=== PATIENT | female | born 1990 | race African-American/Black ===

== ENCOUNTER → 2016-07-02 11:25 | Outpatient (CLI) | payer MEDICAID ==
[~2016-07-02 11:25] MED LIST: CLEOCIN HCL300 MG PO; IBUPROFEN600 MG PO; PERCOCET 5-3251 TAB PO
[2016-08-20 12:25] VITALS: BMI 24.7
== END | disposition home or self-care (01) ==
LOC: D.LDO 11:25
DX: O36.5930 Maternal care for other known or suspected poor fetal growth, third trimester, not applicable or unspecified (principal); Z3A.31 31 weeks gestation of pregnancy

== ENCOUNTER 2016-08-20 11:49 | Inpatient (IN) | payer MEDICAID ==
[~2016-08-20] VITALS: Ht 162.6 cm; Wt 65.5 kg
[2016-08-20 12:25] VITALS: BP 118/58; Ht 162.6 cm; Wt 65.5 kg
[2016-08-20 12:26] LABS: HEMATOCRIT 39.8 % (36.0-48.0); HEMOGLOBIN 13.1 g/dL (12-16); MCH 29.4 pg (26.0-34.0); MCHC 32.9 g/dL (31.0-37.0); MCV 89.2 fL (80.0-100.0); RBC 4.46 10x6/uL (4.00-5.40); RDW 14.5 % (11.5-14.5); WBC 14.5 10x3/uL (4.8-10.8)
[2016-08-20 12:42] LABS: APPEARANCE CLOUDY (CLEAR); BILIRUBIN NEGATIVE (NEGATIVE); COLOR STRAW (YELLOW); GLUCOSE NEGATIVE (NEGATIVE); KETONE NEGATIVE (NEGATIVE); LEUKOCYTE ESTERASE 1+ (NEGATIVE); NITRITE NEGATIVE (NEGATIVE); PROTEIN 1+ mg/dL (NEGATIVE); UROBILINOGEN NORMAL (NORMAL)
[2016-08-20 12:45] LABS: BACTERIA MODERATE /hpf (NONE SEEN)
[2016-08-20 22:27] VITALS: BP 113/72
--- NOTE | 2016-08-20 22:27 | NUR ---
PT RECEIVED FROM RECOVERY ROOM NURSE TO ROOM 1218 AT THIS TIME. ORIENTED PT TO ROOM AND CALL LIGHT. PT VERBALIZED UNDERSTANDING. BP-113/72 P-126 TEMP-98.5 ORAL RESPIRATIONS 18, EVEN, NON-LABORED. O2 -99% ROOM AIR. IV NOTED TO LEFT WRIST INFUSING NS WITH 20 UNITS OF PIT @ 125 CC/HR. PATENT. DRESSING CDI HEART - SINUS TACHYCARDIA, RHYTHM REGULAR. LUNG SOUNDS CLEAR BILATERALLY. BOWEL SOUNDS ACTIVE X4 QUADRENTS. ABDOMEN SOFT WITH TENDERNESS. FUNDUS FIRM AND MIDLINE U/U. LIGHT LOCHIA RUBRA NOTED TO BLUE PAD. PLACED CLEAN STORM PAD ON PT AT THIS TIME. SCDS INITIATED TO BLE AT THIS TIME. MARTIN CATHETER ATTACHED TO RIGHT THIGH. DRAINING. EMPTIED 400 CC KAREEM URINE AT THIS TIME. INSTRUCTED PT ON HOW TO USE IS AT THIS TIME. PT VERBALIZED UNDERSTANDING AND DEMONSTRATED USE BACK TO ME. PT WAS ABLE TO PULL 1500 AT THIS TIME. DEMEROL SWITCHBOARD OPERATOR SUPERVISOR INITIATED AT THIS TIME. INSTRUCTED PT ON HOW TO USE SWITCHBOARD OPERATOR SUPERVISOR. PT VERBALIZED UNDERSTANDING. REQUESTS ICE WATER AT THIS TIME. DENIES OTHER NEEDS. BED LOW. PHONE AND CALL LIGHT IN REACH. SRX2.
[2016-08-20 22:42] VITALS: BP 125/65
[2016-08-20 22:57] VITALS: BP 125/72
[2016-08-20 23:12] VITALS: BP 122/69
[2016-08-20 23:42] VITALS: BP 117/65
--- NOTE | 2016-08-20 23:50 | NUR ---
PT RESTING QUIETLY AT THIS TIME WITH EYES CLOSED. RATES PAIN 5/10 AT THIS TIME. LIGHT LOCHIA RUBRA NOTED TO STORM PAD AND TOWEL UNDER PT AT THIS TIME. PLACED NEW STORM PAD AND REMOVED TOWEL AT THIS TIME. EMPTIED 600 CC FROM MARTIN AT THIS TIME. PT DENIES NEEDS AT THIS TIME. BED LOW. PHONE AND CALL LIGHT IN REACH. SRX2.
[2016-08-21] VITALS (7 sets, daily range): BP systolic 114–125; BP diastolic 52–78
--- NOTE | 2016-08-21 00:13 | NUR ---
PT C/O PAIN 01/22 AT THIS TIME. ADMINISTERED TORADOL IVP PER ORDERS AT THIS TIME FOR BREAKTHROUGH PAIN. PT DENIES FURTHER NEEDS AT THIS TIME. WILL CONTINUE TO MONITOR.
--- NOTE | 2016-08-21 00:43 | NUR ---
PT RESTING QUIETLY AT THIS TIME WITH EYES CLOSED. RESPIRATIONS EVEN, NON-LABOARED. NO ACUTE DISTRESS NOTED AT THIS TIME. PULSE-126. WILL CONTINUE TOO MONITOR.
--- NOTE | 2016-08-21 01:29 | NUR ---
PT RESTING QUIETLY AT THIS TIME WITH EYES CLOSED. RESPIRATIONS EVEN, NON-LABORED. NO ACUTE DISTRESS NOTED AT THIS TIME. PULSE-110. BED LOW. PHONE AND CALL LIGHT IN REACH. SRX2.
--- NOTE | 2016-08-21 02:06 | NUR ---
PT RESTING QUIETLY AT THIS TIME WITH EYES CLOSED. RESPIRATIONS EVEN, NON-LABORED. NO ACUTE DISTRESS NOTED AT THIS TIME. BED LOW. PHONE AND CALL LIGHT IN REACH. SRX2.
--- NOTE | 2016-08-21 03:05 | NUR ---
PT RESTING QUIETLY AT THIS TIME. AROUSED EASILY. DENIES NEEDS AT THIS TIME. BED LOW. PHONE AND CALL LIGHT IN REACH. SRX2.
--- NOTE | 2016-08-21 03:50 | NUR ---
PT RESTING QUIETLY AT THIS TIME. AROUSED EASILY. EMPTIED 900 CC FROM MARTIN AT THIS TIME. MODERATE LOCHIA RUBRA NOTED TO STORM PAD AND LIGHT LOCHIA RUBRA NOTED TO BLUE PAD AT THIS TIME. PLACED CLEAN BLUE PAD AND STORM PAD UNDER PT AT THIS TIME. PT REQUESTS APPLE JUICE AT THIS TIME. DENIES OTHER NEEDS. BED LOW. PHONE AND CALL LIGHT IN REACH. SRX2.
--- NOTE | 2016-08-21 05:38 | NUR ---
PT RESTING QUIETLY WITH EYES CLOSED AT THIS TIME. AROUSED EASILY. MODERATE LOCHIA RUBRA NOTED TO STORM PAD AT THIS TIME. PLACED NEW STORM PAD ON PT. PT DENIES NEEDS. BED LOW. PHONE AND CALL LIGHT IN REACH. SRX2.
[2016-08-21 06:16] LABS: RAPID PLASMA REAGIN Non Reactive (Non Reactive)
[2016-08-21 06:36] LABS: BASOPHILS 0.2 % (0.0-2.0); EOSINOPHILS 0.3 % (0-7); HEMATOCRIT 35.3 % (36.0-48.0); HEMOGLOBIN 11.6 g/dL (12-16); IMMATURE GRANULOCYTES 0.5 % (0-5); LYMPHOCYTES 7.4 % (15-50); MCH 28.9 pg (26.0-34.0); MCHC 32.9 g/dL (31.0-37.0); MEAN PLATELET VOLUME 12.2 fL (7.4-10.4); MONOCYTES 7.5 % (2-11); NEUTROPHILS 84.1 % (40-80); PLATELET COUNT 185 10x3/uL (130-400); RBC 4.01 10x6/uL (4.00-5.40); RDW 14.7 % (11.5-14.5)
--- NOTE | 2016-08-21 06:36 | NUR ---
PT BURNER HAND LIGHT. REQUESTS TO MOVE UP IN THE BED AT THIS TIME. LIGHT LOCHIA RUBRA NOTED TO STORM PAD AT THIS TIME. PLACED CLEAN STORM PAD ON PT. PT REQUESTS ICE WATER AND JELLO AT THIS TIME. DENIES FURTHER NEEDS. BED LOW. PHONE AND CALL LIGHT IN REACH. SRX2.
[2016-08-21 06:39] LABS: WBC 19.6 10x3/uL (4.8-10.8)
--- NOTE | 2016-08-21 07:58 | NUR ---
PT HAD A C SECTION LAST PM AND IS NOW ON BEDREST. WILL DO PCXR.
--- NOTE | 2016-08-21 08:14 | NUR ---
PATIENT DID NOT ALLOW PALPATION OF ABDOMEN DUE TO GUARDING FOR PAIN. ENCOURAGED USE OF INVESTIGATOR INTERNAL REVENUE. WILL MEDICATE ABLE TO COMFORT/ALLOW ABDOMINAL PALPATION. MEDICAL IMAGING HER FOR CXR. FOB TOOK TO NURSERY. PATIENT STATEST HAT SHE IS FEELING TIRED. TACHYCARDIA NOTED. BLEEDING LIGHT. PERIPAD CHANGED.
--- NOTE | 2016-08-21 09:25 | NUR ---
PATIENT'S FF U/1. SHE GUARDED PALPATION BUT DID ALLOW. HER BLEEDING REMAINS LIGHT, PERIPAD CHANGED. URINE OUTPUT IS ABOVE ADEQUATE. SCD'S ARE ON AND PUMPING. FOB BRINGING INFANT IN I LEFT, ACCOMPANIED BY VISITORS.
--- NOTE | 2016-08-21 10:30 | NUR ---
PATIENT HOLDING BABY I ENTER, SHE REQUESTS THAT I PLACE HIM IN BASSINET. PATIENT RATES HER PAIN A 3. HER BLEEDING IS LIGHT, PERIPAD CHANGED. URINARY OUTPUT REMAINS GOOD. PATIENT STATES THAT SHE WANTS TO NAP AND REQUESTS THAT I MOVE THE CLOSE TO THE BEDSIDE WHERE SHE CAN SEE HIM. HE IS SLEEPING. SCD'S REMAIN ON.
--- NOTE | 2016-08-21 12:40 | NUR ---
PATIENT ABLE TO EAT SOME OF HER MEAL. DENIES NAUSEA. FOB ASLEEP AT THE BEDSIDE, PATIENT DENIES NEEDS, STATES THAT SHE IS SLEEPY AND WANTS TO REST.
--- NOTE | 2016-08-21 14:40 | NUR ---
MARTIN CATHETER REMOVED AFTER BALLOON DEFLATED, FULLY INTACT. SL THE IV TO HER LEFT HAND. SHE C/O SORE THROAT. HOT TEA PROVIDED PER REQUEST. ORAL PAIN MEDICATIONS GIVEN WITH INSTRUCTIONS TO CALL FOR ASSISTANCE GETTING UP OOB.
--- NOTE | 2016-08-21 16:32 | NUR ---
CONTINUED TACHYCARDIA NOTED. REPORT CALLED TO DR. QUICK, NEW ORDERS RECEIVED. CONSULT CALLED TO [facility]. SPOKE WITH JUDIE, INFO GIVEN. IT IS UNCLEAR WHICH PHYSICIAN WILL BE IN. PATIENT NOTIFIED. SHE VOICES UNDERSTANDING.
--- NOTE | 2016-08-21 17:35 | NUR ---
PATIENT BACK TO BED AFTER SITTING UP IN THE BEDSIDE CHAIR. SHE IS ABLE TO GET BACK TO BED WITH VERBAL CUEING AND STANDBY ASSIST. FOB RETURNING, SUPPER TRAY SET UP IN FRONT OF HER FOR EASY ACCESS. SHE DENIES FURTHER NEEDS AT THIS TIME.
[2016-08-21 18:19] LABS: HEMATOCRIT 32.6 % (36.0-48.0); HEMOGLOBIN 10.7 g/dL (12-16); MCH 28.9 pg (26.0-34.0); MCHC 32.8 g/dL (31.0-37.0); MCV 88.1 fL (80.0-100.0); MEAN PLATELET VOLUME 11.2 fL (7.4-10.4); PLATELET COUNT 155 10x3/uL (130-400); RDW 14.8 % (11.5-14.5); WBC 23.4 10x3/uL (4.8-10.8)
[2016-08-21 18:42] LABS: EOSINOPHILS 1 % (0-7); LYMPHOCYTES 8 % (15-50); MONOCYTES 4 % (2-11); NEUTROPHILS 79 % (40-80); PLATELET ESTIMATE DECREASED
--- NOTE | 2016-08-21 19:35 | NUR ---
PT GRANITE BLOCK PAVER LIGHT. STATES SHE NEEDS TO USE RESTROOM AT THIS TIME. ASSISTED PT TO RESTROOM. PT VOIDED APPROX 400 CC KAREEM URINE AT THIS TIME. INFANT TO ROOM AT THIS TIME FOR BOTTLE FEEDING. INFORMED PT I WOULD RETURN TO PERFORM ASSESSMENT. PT DENIES NEEDS. BED LOW. PHONE AND CALL LIGHT IN REACH. SRX2.
--- NOTE | 2016-08-21 20:24 | NUR ---
PT FINISHED BOTTLE FEEDING INFANT AT THIS TIME. PLACED IN BASSINET. PT STATES SHE WANTS TO WAIT FOR FOB TO RETURN BEFORE TAKING SHOWER. BP-122/64 PULSE-110 O2 SAT-99% ROOM AIR. RESPIRATIONS 18 EVEN, NON-LABORED. PT RATES PAIN 3/10 AT THIS TIME. SALINE LOCK NOTED TO LEFT WRIST. DRESSING CDI. HEART SINUS TACHYCARDIA. LUNG SOUNDS CLEAR BILATERALLY. BOWEL SOUNDS ACTIVE X4 QUADRENTS. ABDOMEN SOFT WITH TENDERNESS. LOW TRANSVERSE INCISION NOTED TO ABDOMEN WITH BULKY DRESSING. DRESSING CDI. FUNDUS FIRM AND MIDLINE U/1. SCANT LOCHIA RUBRA NOTED TO STORM PAD AT THIS TIME. PT STATES LOCHIA HAS BEEN LIGHT THROUGHOUT THE DAY. SCDS NOTED TO BLE. PT DENIES NEEDS AT THIS TIME. BED LOW. PHONE AND CALL LIGHT IN REACH. SRX2.
--- NOTE | 2016-08-21 21:40 | NUR ---
PT UP GETTING INTO SHOWER AT THIS TIME. SCANT LOCHIA RUBRA NOTED TO STORM PAD. REMOVED BULKY DRESSING. EDGES WELL APPROXIMATED. SMALL SKIN TEAR NOTED TO RIGHT SIDE OF INCISION. NO REDNESS, SWELLING, OR PURULENT DRAINAGE NOTED TO INCISION AREA. BED LINENS CHANGED PER EVA PEARSON AT THIS TIME.
--- NOTE | 2016-08-21 21:50 | NUR ---
PT VOIDED APPROX 700 CC KAREEM URINE AT THIS TIME.
--- NOTE | 2016-08-21 22:19 | NUR ---
PT REQUESTS MEDICATION FOR PAIN 12/22 AT THIS TIME. ADMINISTERED IBUPROFEN PO PER ORDERS. FOB AND INFANT AT BEDSIDE. DENIES FURTHER NEEDS. BED LOW. PHONE AND CALL LIGHT IN REACH. SRX2.
[2016-08-22 00:01] VITALS: BP 113/66
--- NOTE | 2016-08-22 00:02 | NUR ---
PT RESTING QUIETLY AT THIS TIME WITH INFANT IN ARMS. VITAL SIGNS TAKEN. BP-113/66 PULSE-120 O2 SAT-98% ROOM AIR. RESPIRATIONS 18 EVEN, NON-LABORED. PT DENIES NEEDS AT THIS TIME. BED LOW. PHONE AND CALL LIGHT IN REACH. SRX2.
--- NOTE | 2016-08-22 02:02 | NUR ---
PT RESTING QUIETLY AT THIS TIME WITH INFANT ON CHEST. DENIES NEEDS. BED LOW. PHONE AND CALL LIGHT IN REACH. SRX2.
[2016-08-22 04:17] VITALS: BP 131/70
--- NOTE | 2016-08-22 04:17 | NUR ---
PT GETTING BACK IN BED FROM USING RESTROOM AT THIS TIME. VITAL SIGNS TAKEN. BP-131/70 PULSE-128 O2 SAT-98% ROOM AIR. RESPIRATIONS 18 EVEN, NON-LABORED. PT DENIES NEEDS AT THIS TIME. BED LOW. PHONE AND CALL LIGHT IN REACH. SRX2.
--- NOTE | 2016-08-22 06:42 | NUR ---
PT RESTING QUIETLY AT THIS TIME WATCHING TV. DENIES NEEDS. BED LOW. PHONE AND CALL LIGHT IN REACH. SRX2.
--- NOTE | 2016-08-22 07:50 | NUR ---
PATIENT IS OUT AMBULATING IN THE HALLWAY WITH FOB. SHE IS SMILING AND STATES THAT SHE HAD A GOOD NIGHT.
[2016-08-22 08:10] VITALS: BP 141/74
[2016-08-22 11:31] LABS: BASOPHILS 0.1 % (0.0-2.0); EOSINOPHILS 0.9 % (0-7); HEMATOCRIT 31.6 % (36.0-48.0); HEMOGLOBIN 10.4 g/dL (12-16); IMMATURE GRANULOCYTES 0.8 % (0-5); LYMPHOCYTES 6.2 % (15-50); MCH 29.1 pg (26.0-34.0); MCHC 32.9 g/dL (31.0-37.0); MCV 88.5 fL (80.0-100.0); MEAN PLATELET VOLUME 11.8 fL (7.4-10.4); MONOCYTES 6.7 % (2-11); NEUTROPHILS 85.3 % (40-80); PLATELET COUNT 175 10x3/uL (130-400); RBC 3.57 10x6/uL (4.00-5.40); RDW 14.9 % (11.5-14.5); WBC 26.1 10x3/uL (4.8-10.8)
--- NOTE | 2016-08-22 11:40 | NUR ---
PATIENT IS C/O RIGHT SIDED ABDOMINAL PAIN. SHE STATE SHTAT IT CAME ON QUITE SUDDENLY. HER ABDOMEN IS DISTENDED. BOWEL SOUNDS ARE ACTIVE. SHE HASN'T PASSED GAS YET PER STATEMENT. SHE STATES THAT SHE FEELS IT MOVING AROUND IN HER ABDOMEN. SHE IS SITTING UP IN [facility] BEDSIDE CHAIR.
--- NOTE | 2016-08-22 14:20 | NUR ---
PATIENT STATES THAT HER PAIN REMAINS A 7. DISCUSSED A DULCOLAX SUPPOSITORY. SHE DECLINES. INITIATED HER ABT. IT WAS BURNING AT THE INSERTION SITE, BEGAN LEAKING ALMOST IMMEDIATELY. RESITED TO THE RIGHT UPPER FOREARM, 22 GAUGE, GOOD BLOOD RETURN. PATIENT GIVEN HER AND ENCOURAGED TO INTERACT WITH SKIN TO SKIN OR SINGING. SHE WAS CALLING HIM LITTLE MAN, LOVINGLY I LEFT.
--- NOTE | 2016-08-22 16:10 | NUR ---
PATIENT STATES THAT SHE HAS BELCHED TWICE REAL BIG AND THIS HAS GIVEN HER SOME RELIEF.
--- NOTE | 2016-08-22 17:22 | NUR ---
URINE SAMPLE COLLECTED AND DELIVERED TO THE LAB.
[2016-08-22 17:58] LABS: APPEARANCE CLEAR (CLEAR); BILIRUBIN NEGATIVE (NEGATIVE); COLOR YELLOW (YELLOW); GLUCOSE NEGATIVE (NEGATIVE); KETONE NEGATIVE (NEGATIVE); LEUKOCYTE ESTERASE NEGATIVE (NEGATIVE); NITRITE NEGATIVE (NEGATIVE); PROTEIN NEGATIVE (NEGATIVE); UROBILINOGEN NORMAL (NORMAL)
[2016-08-22 18:00] LABS: BACTERIA FEW /hpf (NONE SEEN); EPITHELIAL CELLS 0-5 /hpf (0-5)
--- NOTE | 2016-08-22 19:13 | OP ---
PATIENT NAME: LA DEL VALLE V MEDICAL RECORD: [id number] :91 LOCATION:[facility] D.1218 ADMISSION DATE:08/20/16 SURGEON: RYAN STEELE MD DATE OF OPERATION: 08/20/2016 DATE OF OPERATION: 08/20/2016 PREOPERATIVE DIAGNOSES: 1. Intrauterine at 38 weeks and 3 days. 2. Secondary failure of descent. POSTOPERATIVE DIAGNOSES: 1. Intrauterine at 38 weeks and 3 days. 2. Secondary failure of descent. 3. asynclitism/occiput posterior presentation. 4. Delivered. SURGEON: Ryan Steele MD. ANESTHESIA: Epidural anesthesia with [place] CRNA. PROCEDURE: Primary low-transverse . PREOPERATIVE NOTE: The patient is a 26-year-old , -[place] female at 38 weeks and 3 days, who presented to labor and delivery with report of spontaneous rupture of membranes at 11:20 this a.m. with continued loss of fluid since, gross rupture was confirmed and the patient was admitted. The patient was not noted to be in labor and after approximately 3-4 hours of observation, was not noted to go into labor spontaneously; therefore, Pitocin augmentation for her labor was begun. The patient was noted to be 2 cm dilated at time of admission. The patient subsequently received an epidural for pain management and continued to progress normally through labor. Once the patient reached complete cervical dilation, expulsive efforts were begun and in spite of very good expulsive efforts on the maternal part, the fetus vertex was unable to descend. The patient was noted to have a very narrow pubic arch, a prominent tailbone and all expulsive efforts accomplished were development of caput succedaneum as well as further molding of the vertex. Palpably, the vertex was felt to be OP presentation and was possibly asynclitic. After more than an hour of good maternal expulsive efforts as well as cessation of the epidural to aid in this and discussion with the family, decision was made to proceed with a for delivery. heart rate tracing was noted to have variable decelerations with pushing, which returned spontaneously to baseline during rest periods and once Pitocin was discontinued, heart rate tracing became category 1 and was reassuring while awaiting preparations for . FINDINGS: Delivery of viable male from asynclitic vertex/occiput posterior presentation via primary low-transverse under epidural anesthesia at 2130 p.m. with weight of 5 pounds 14 ounces and scores of 8 and 9 at 1 and 5 minutes respectively. No nuchal cord was noted. The cord was clamped and cut. The was bulb suctioned and handed to awaiting pediatric nursing personnel. The placenta was delivered manually intact with 3-vessel cord at 2131 p.m. Pitocin 20 units and 1 liter of normal saline was begun IV. The fundus was noted to be firm. Normal-appearing uterus, ovaries and tubes bilaterally. The patient went to the recovery room in stable condition, the OPERATIVE REPORT [id number] LA DEL VALLE V to the nursery. DESCRIPTION OF PROCEDURE: After informed consent was given, the patient was taken to the operating room where epidural anesthesia was already in place, was bolused and found to be adequate. She was placed in a dorsal supine position with a leftward tilt. A Fernandes catheter was already in place with blood-tinged urine return. The patient was prepped and draped sterilely and when adequate anesthesia was noted, a Pfannenstiel skin incision was made through her skin and carried down to the underlying layer of fascia. The fascia was incised in midline and fascial incision extended bilaterally with the Resendez scissors. The superior portion of the fascial incision was grasped with 2 Socorro clamps and the rectus muscles dissected off sharply and bluntly. Attention was then turned to the inferior portion of the fascial incision, which was again grasped with 2 Socorro clamps and the rectus muscles dissected off sharply and bluntly. The rectus muscles were in the midline, the peritoneum identified and entered bluntly with a finger. This incision was extended superiorly and inferiorly with good visualization of the bladder. The Ford O retractor was then gently placed into the abdomen and opened in the usual fashion. The vesicouterine peritoneum was grasped with the smooth pickups and entered sharply with Metzenbaum scissors. This incision was extended bilaterally and a bladder flap created digitally. The hysterotomy was created with the knife and this was extended bilaterally bluntly. The fetus was then palpated and noted to be impacted in the pelvis in OP presentation. Anesthesia was instructed to give 50 mcg of nitroglycerin and this was given. Almost immediately, the uterus was relaxed and the head was able to be delivered atraumatically. No nuchal cord was noted. The cord was clamped times 2 and cut. The was bulb suctioned and handed to awaiting pediatric nursing personnel. The placenta was delivered manually and passed off the field as specimen. Cord blood was obtained. The uterus was left in situ with the hysterotomy apices clamped with ring forceps. The hysterotomy was then closed with #1 chromic in a running locked fashion with 2 imbricating sutures required for excellent hemostasis to be noted. Excellent hemostasis was then noted and the abdomen was irrigated profusely and was noted to be hemostatic. Paul dust was placed over the hysterotomy to aid additionally in hemostasis. The Ford O retractor was then removed and passed off the field. The rectus muscles were reapproximated in the midline with 4 interrupted chromic sutures. The fascia was closed with 0 Vicryl in a running fashion and the subcutaneous tissue was then irrigated. Any bleeders cauterized with the Bovie and when noted to be sufficiently dry was closed with 3-0 Vicryl in a running fashion and the skin was closed with 3-0 Monocryl in a subcuticular fashion. Dermabond and pressure dressing were applied. The patient tolerated procedure well. Sponge, lap, needle and instrument counts reported correct times 2 and the patient went to the recovery room in stable condition and the to the nursery. ESTIMATED BLOOD LOSS: 800 cc. URINE OUTPUT: 100 cc. SPECIMENS: Placenta and cord blood. COMPLICATIONS: None. TRANSINT:[id number] Voice Confirmation ID: [id number] DOCUMENT ID: [id number] OPERATIVE REPORT [id number] LA DEL VALLE RENEE MD at 1913 CC: [id number] DICTATION DATE: 08/20/16 2248 STUDIO ASSISTANT: 08/21/16 0259 ADM IN [place] [address] [place] [address]
--- NOTE | 2016-08-22 19:19 | NUR ---
CATHLEEN STATES THAT SHE IS STILL NOT PASSING GAS. DISCUSSED AGAIN THE DULCOLAX SUPP. SHE ALLOWED. INSTRUCTED HER TO LAY ON HER LEFT SIDE FOR AT LEAST 15 MINUTES OR SHE BECAME UNABLE TO HOLD HER BOWEL ANY LONGER. SHE VOICED UNDERSTANDING. FOB AT THE BEDSIDE CHANGING A DIAPER. THEY DENY OTHER NEEDS AT THIS TIME.
--- NOTE | 2016-08-22 19:20 | NUR ---
PATIENT STATES THAT SHE IS STILL NOT PASSING GAS. DISCUSSED AGAIN THE DULCOLAX SUPPOSITORYT. SHE ALLOWED IT TO BE GIVEN. INSTRUCTED HER TO LAY ON HER LEFT SIDE FOR 15 MINUTED OR UNTIL SHE IS UNABLE TO HOLD HER BOWEL ANY LONGER. SHE VOICED UNDERSTANDING. FOB AT THE BEDISDE CHANGING INFANTS DIAPER. THEY DENY OTHER NEEDS AT THIS TIME.
[2016-08-22 19:45] VITALS: BP 131/78
--- NOTE | 2016-08-22 19:45 | NUR ---
PT RECEIVED AMBULATING IN ROOM AT THIS TIME. FOB AND IN ROOM. VITAL SIGNS TAKEN. BP-131/78 PULSE-127 O2 SAT-100% ROOM AIR. TEMP-98.3 ORALLY. RESPIRATIONS 18 EVEN, NON-LABORED. HEART-SINUS TACHYCARDIA. LUNG SOUNDS CLEAR BILATERALLY. S/L NOTED TO LEFT UPPER ARM. DRESSING CDI. BOWEL SOUNDS ACTIVE X4 QUADRENTS. ABDOMEN DISTENDED, NON-TENDER. FUNDUS FIRM AND MIDLINE U/2. LOW TRANSVERSE INCISION NOTED TO ABDOMEN WITH DERMABOND. NO REDNESS, SWELLING, OR DRAINAGE NOTED TO INCISION AREA. SMALL SKIN TEAR NOTED TO RIGHT SIDE OF INCISION. PEDAL PULSES EQUAL BILATERALLY. 1+ PITTING EDEMA NOTED TO BLE. PT RATES PAIN 2/10 AT THIS TIME. DENIES NEEDS. BED LOW. PHONE AND CALL LIGHT IN REACH. SRX2.
--- NOTE | 2016-08-22 21:00 | NUR ---
PT PASSED SMALL BM AT THIS TIME. DENIES NEEDS. BED LOW. PHONE AND CALL LIGHT IN REACH. SRX2.
--- NOTE | 2016-08-22 22:33 | NUR ---
PT UP USING RESTROOM AT THIS TIME. NO NEEDS NOTED.
[2016-08-22 23:50] VITALS: BP 130/75
--- NOTE | 2016-08-22 23:50 | NUR ---
PT SITTING UP IN CHAIR HOLDING INFANT AT THIS TIME. VITAL SIGNS TAKEN. BP-130/75 PULSE-117 O2 SAT-100% ROOM AIR. RESPIRATIONS 18 EVEN, NON-LABORED. TEMP-98.9. PT DENIES NEEDS AT THIS TIME. BED LOW. PHONE AND CALL LIGHT IN REACH. SRX2.
--- NOTE | 2016-08-23 00:57 | NUR ---
AMPICILLIN IVPB STARTED AT THIS TO LEFT FOREARM. IV PATENT. INFUSING. DRESSING CDI. PT REQUESTS CRUSHED ICE AT THIS TIME. DENIES OTHER NEEDS. BED LOW. PHONE AND CALL LIGHT IN REACH. SRX2.
--- NOTE | 2016-08-23 02:18 | NUR ---
PT AWAKE WATCHING TV AT THIS TIME. FOB AND AT BEDSIDE. DENIES NEEDS. BED LOW. PHONE AND CALL LIGHT IN REACH. SRX2.
[2016-08-23 03:40] VITALS: BP 131/79
--- NOTE | 2016-08-23 03:40 | NUR ---
PT REQUESTS BREAST PADS AT THIS TIME. VITAL SIGNS TAKEN. TEMP-98 PULSE-106 O2 SAT-100% ROOM AIR. BP-131/79. PT DENIES OTHER NEEDS. BED LOW. PHONE AND CALL LIGHT IN REACH. SRX2.
--- NOTE | 2016-08-23 05:16 | NUR ---
PT RESTING QUIETLY AT THIS TIME WITH EYES CLOSED. RESPIRATIONS EVEN NON-LABORED. NO ACUTE DISTRESS NOTED AT THIS TIME. BED LOW. PHONE AND CALL LIGHT IN REACH. SRX2.
--- NOTE | 2016-08-23 07:30 | NUR ---
PT AMBULATES BACK TO ROOM FROM NURSERY WITH IN OPEN CRIB. LOW TRANSVERSE ABD INC C/D/I. PT STATES NO HEAVY BLEEDING. BS VERY ACTIVE, ABD FIRM. PT DENIES NEED FOR PAIN RX AT THIS TIME. VS NOTED. WILL CONTINUE TO MONITOR.
[2016-08-23 07:35] VITALS: BP 116/84
--- NOTE | 2016-08-23 08:28 | NUR ---
PT UP AND ABOUT IN ROOM.
--- NOTE | 2016-08-23 08:38 | NUR ---
CALLED TO ROOM. PT STATES SHE HAD BM AND PASSED A LOT OF GAS, FEELS MUCH BETTER.
--- NOTE | 2016-08-23 09:15 | NUR ---
PER WE[facility] [place] PT HAS HAS TDAP.
--- NOTE | 2016-08-23 10:13 | NUR ---
IN TO CHECK ON PT. SHE APPEARED TO BE SLEEPING AND HOLDING . PLACED IN OPEN CRIB. MOTHER AWAKENS, UP TO BR. REQUESTED PAIN RX. SEE EMAR.
--- NOTE | 2016-08-23 10:28 | NUR ---
CALLED ANSWERING SERVICE TO HAVE DR. OLIVARES CALL UNIT RE ECHO, PER DR. QUICK'S ORDER.
--- NOTE | 2016-08-23 10:30 | NUR ---
DR. ELISE SHAH'S CALL. [facility] ECHO WN. CALL TRANSFERRED TO DR. QUICK.
--- NOTE | 2016-08-23 10:35 | NUR ---
LAB HERE TO DRAW CBC.
--- NOTE | 2016-08-23 10:35 | NUR ---
PT SITTING UP IN CHAIR AT BEDSIDE FEEDING .
[2016-08-23 10:42] LABS: BASOPHILS 0.2 % (0.0-2.0); EOSINOPHILS 1.6 % (0-7); HEMATOCRIT 32.2 % (36.0-48.0); HEMOGLOBIN 10.4 g/dL (12-16); IMMATURE GRANULOCYTES 0.9 % (0-5); LYMPHOCYTES 8.9 % (15-50); MCH 28.7 pg (26.0-34.0); MCHC 32.3 g/dL (31.0-37.0); MCV 88.7 fL (80.0-100.0); MEAN PLATELET VOLUME 10.9 fL (7.4-10.4); MONOCYTES 5.3 % (2-11); NEUTROPHILS 83.1 % (40-80); PLATELET COUNT 200 10x3/uL (130-400); RBC 3.63 10x6/uL (4.00-5.40); RDW 14.6 % (11.5-14.5)
[2016-08-23 10:45] LABS: WBC 18.9 10x3/uL (4.8-10.8)
[2016-08-23] MEDS ORDERED: IBUPROFEN600 MG PO (10:52)
[2016-08-23] MEDS ORDERED: PERCOCET 5-3251 TAB PO (10:52)
[2016-08-23] MEDS ORDERED: CLEOCIN HCL300 MG PO (10:53)
--- NOTE | 2016-08-23 11:08 | NUR ---
SITTING UP IN CHAIR HOLDING . CALL LIGHT IN REACH.
--- NOTE | 2016-08-23 11:37 | NUR ---
DR. QUICK HERE FOR ROUNDS.
--- NOTE | 2016-08-23 12:17 | NUR ---
D/C INSTRUCTIONS EXPLAINED TO PT. VOICED UNDERSTANDING. COPIES OF ALL GIVEN, WELL WRITTEN RX'S FOR PERCOCET AND MOTRIN PER DR. QUICK. AWAITING 'S D/C.
--- NOTE | 2016-08-23 12:52 | NUR ---
D/C'D HOME WITH , VIA WC TO PRIVATE CAR.
--- NOTE | 2016-10-13 13:09 | EC ---
PATIENT:LA DEL VALLE V DATE OF SERVICE: 08/20/16 SEX: F MEDICAL RECORD: [id number] DATE OF : [birth year] LOCATION:[facility] AGE OF PATIENT: 26 ADMISSION DATE: 08/20/16 REFERRING PHYSICIAN: INTERPRETING PHYSICIAN: ELMIRA OLIVARES MD ECHOCARDIOGRAM REPORT ECHO CHARGES 4 ECHO COMPLETE CLINICAL DIAGNOSIS: ARRHYTHMIAS ECHOCARDIOGRAPHIC MEASUREMENTS (adult normal given) AC root (d.<3.7cm) 2.7 LV Septum d (<1.2 cm> 1.3 Valve Excursion 2.2 LV Septum (systole) 1.9 Left Atria (s.<4.0cm> 2.1 LVPW d(<1.2cm) 1.5 RV (d.<2.3cm) 2.3 LVPW (sytole) 1.8 LV diastole(<5.6CM) 3.8 MV E-F(>70mm/sec) LV systole 2.2 LVOT Diameter 1.9 MV exc.(>10mm) Est.ejection fraction (50-75%) Pericardial Effusion N DOPPLER: LVIT A 77.0 E 142 LA RVSP 27.0 LVOT 135 AOP1/2T Asc. Ao 189 RVOT 74.0 RA PA 114 AV Gradient Peak 14.0 AV Mean 5.7 AV Area 2.2 MV Gradient Peak 9.8 MV Mean 3.9 MV Area COMMENTS: Psychiatric Clinician: Branden ESPINAL Asset Protection Assistant:Kris [employer] TAPE# PACS DATE OF SERVICE: 08/22/2016 ECHOCARDIOGRAM FINDINGS: 1. Left ventricular chamber size is within normal limits. Left ventricular systolic function is normal. Overall ejection fraction estimated at 60%. 2. Left atrium, right atrium, and right ventricular chamber sizes are within normal limits. 3. Valvular structures have normal structure and motion. ECHOCARDIOGRAM REPORT [id number] LA DEL VALLE V 4. Doppler interrogation reveals no significant valvular insufficiency or stenosis. 5. No evidence of pericardial effusion or left ventricular thrombus. Pulmonary pressures are normal estimated at 27 mmHg. TRANSINT:[id number] Voice Confirmation ID: [id number] DOCUMENT ID: [id number] 08/27/2016 Edited to correct date of service, dm. ELMIRA OLIVARES MD at 1309 CC: RYAN QUICK MD [id number] DICTATION DATE: 08/23/16 1052 NETWORKING SPECIALIST: 08/23/16 2329 DIS IN 08/23/16 [place] [id number] [place] [address]
== END 2016-08-23 12:53 | disposition home or self-care (01) | DRG 766 ==
LOC: D.LDO 11:49 → D.WS 11:50 → D.LD 11:50 → D.WS 22:26
PROVIDERS: ADMIT Specialist
PROC: 10D00Z1 Extraction of Products of Conception, Low, Open Approach (ICD-10-PCS; principal; 2016-08-20 21:00)
DX: O32.4XX0 Maternal care for high head at term, not applicable or unspecified (principal); Z3A.38 38 weeks gestation of pregnancy; Z37.0 Single live birth; O64.0XX0 Obstructed labor due to incomplete rotation of fetal head, not applicable or unspecified; O90.89 Other complications of the puerperium, not elsewhere classified; R00.0 Tachycardia, unspecified; Z87.891 Personal history of nicotine dependence

== ENCOUNTER 2018-10-01 05:04 | Emergency (ER) | payer SELFPAY ==
[~2018-10-01] VITALS: Ht 162.6 cm; Wt 46.8 kg
[2018-10-01 05:09] VITALS: Ht 162.6 cm; Wt 46.8 kg
[2018-10-01 05:30] LABS: APPEARANCE HAZY (CLEAR); BILIRUBIN NEGATIVE (NEGATIVE); COLOR YELLOW (YELLOW); GLUCOSE NEGATIVE (NEGATIVE); KETONE SMALL mg/dL (NEGATIVE); NITRITE NEGATIVE (NEGATIVE); PROTEIN NEGATIVE (NEGATIVE); UROBILINOGEN NORMAL (NORMAL)
[2018-10-01 05:31] LABS: BACTERIA MODERATE /hpf (NONE SEEN); EPITHELIAL CELLS 0-5 /hpf (0-5); HCG URINE NEGATIVE (NEGATIVE)
[2018-10-01] MEDS ORDERED: CYCLOBENZAPRINE10 MG PO (06:00)
[2018-10-01] MEDS ORDERED: HYDROCODON-ACE1 EAC2 PO (06:00)
[2018-10-01 06:01] LABS: BASOPHILS 0.9 % (0-2); EOSINOPHILS 1.7 % (0-7); HEMATOCRIT 42.8 % (36.0-48.0); HEMOGLOBIN 14.4 g/dL (12-16); IMMATURE GRANULOCYTES 0.2 % (0-5); LYMPHOCYTES 24.8 % (15-50); MCH 29.4 pg (26.0-34.0); MCHC 33.6 g/dL (31.0-37.0); MCV 87.3 fL (80.0-100.0); MEAN PLATELET VOLUME 11.4 fL (7.4-10.4); MONOCYTES 9.1 % (2-11); NEUTROPHILS 63.3 % (40-80); PLATELET COUNT 230 10x3/uL (130-400)
[2018-10-01] MEDS ORDERED: MACROBID100 MG PO (06:06)
[2018-10-01 06:18] LABS: ALBUMIN 3.6 g/dL (3.4-5.0); ALKALINE PHOSPHATASE 82 U/L (46-116); ALT (SGPT) 15 U/L (10-68); BILIRUBIN - TOTAL 0.48 mg/dL (0.2-1.3); CALC OSMOLALITY 275 mosm/kg (275-300); CALCIUM 8.6 mg/dL (8.5-10.1); CARBON DIOXIDE 27.8 mmol/L (21.0-32.0); CHLORIDE - SERUM 105 mmol/L (98-107); CREATININE - SERUM 0.9 mg/dL (0.6-1.3); GLUCOSE 103 mg/dL (74-106); POTASSIUM - SERUM 4.2 mmol/L (3.5-5.1); PROTEIN - SERUM 7.7 g/dL (6.4-8.2); SODIUM 139 mmol/L (136-145); UREA NITROGEN 8 mg/dL (7-18); eGFR NON AFRICAN AMERICAN 80 mL/min (90-120)
[2018-10-01 06:46] VITALS: BP 113/60
== END 2018-10-01 06:46 | disposition home or self-care (01) ==
LOC: D.ER 05:04
PROVIDERS: Emergency Medicine
DX: R10.9 Unspecified abdominal pain (principal); N39.0 Urinary tract infection, site not specified; M54.5 Low back pain

== ENCOUNTER 2018-12-25 22:57 | Emergency (ER) | payer MEDICAID ==
[~2018-12-25 22:57] MED LIST changes: +CYCLOBENZAPRINE10 MG PO; +HYDROCODON-ACE1 EAC2 PO; +MACROBID100 MG PO
[2018-12-25 22:59] VITALS: Ht 162.6 cm
[2018-12-25] MEDS ORDERED: TORADOL10 MG PO (23:52)
[2018-12-26 00:04] VITALS: BP 112/74
== END 2018-12-26 00:04 | disposition home or self-care (01) ==
LOC: D.ER 22:57
DX: S60.221A Contusion of right hand, initial encounter (principal); Y93.89 Activity, other specified; Y92.410 Unspecified street and highway as the place of occurrence of the external cause

== ENCOUNTER 2020-01-30 11:26 | Emergency (ER) | payer MEDICAID ==
[~2020-01-30] VITALS: Ht 162.6 cm; Wt 46.4 kg
[~2020-01-30 11:26] MED LIST changes: +TORADOL10 MG PO
[2020-01-30 11:35] VITALS: Ht 162.6 cm; Wt 46.4 kg
[2020-01-30 12:00] LABS: BASOPHILS 0.6 % (0-2); EOSINOPHILS 1.1 % (0-7); HEMATOCRIT 40.6 % (36.0-48.0); HEMOGLOBIN 13.1 g/dL (12-16); IMMATURE GRANULOCYTES 0.2 % (0-5); LYMPHOCYTES 20.8 % (15-50); MCHC 32.3 g/dL (31.0-37.0); MCV 86.8 fL (80.0-100.0); MEAN PLATELET VOLUME 11.1 fL (7.4-10.4); MONOCYTES 7.2 % (2-11); NEUTROPHILS 70.1 % (40-80); PLATELET COUNT 249 10x3/uL (130-400); RBC 4.68 10x6/uL (4.00-5.40); RDW 14.7 % (11.5-14.5)
[2020-01-30 12:09] LABS: ANION GAP 12.7 mmol/L (8-16); POTASSIUM - SERUM 3.7 mmol/L (3.5-5.1)
[2020-01-30 12:15] LABS: ALBUMIN 3.6 g/dL (3.4-5.0); BILIRUBIN - TOTAL 0.67 mg/dL (0.2-1.3); PROTEIN - SERUM 7.5 g/dL (6.4-8.2)
[2020-01-30 12:28] LABS: HCG SERUM NEGATIVE (NEGATIVE)
[2020-01-30 13:16] LABS: BACTERIA FEW /hpf (NEGATIVE); BILIRUBIN NEGATIVE (NEGATIVE); EPITHELIAL CELLS RARE /hpf (0-5); GLUCOSE NEGATIVE (NEGATIVE); KETONE NEGATIVE (NEGATIVE); NITRITE NEGATIVE (NEGATIVE); WHITE CELLS - URINE >50 /hpf (NEGATIVE)
[2020-01-30] MEDS ORDERED: MACROBID100 MG PO (14:20)
[2020-01-30] MEDS ORDERED: DOXYCYCLINE HY100 M2 PO (14:22)
[2020-01-30 15:06] VITALS: BP 103/67
== END 2020-01-30 15:06 | disposition home or self-care (01) ==
LOC: D.ER 11:26
PROVIDERS: Family Medicine
DX: N39.0 Urinary tract infection, site not specified (principal)